=== PATIENT | male | born 1955 | race Caucasian/White ===

== ENCOUNTER → 2016-03-07 | Outpatient (CLI) | payer OTHER ==
[~2016-03-07] MED LIST: ACTIVE MIND PO; ADVIN10/60; ASPI81TA28 PO; COEN1CAP28 PO; DTRSR2 PO; FLAX12003 PO; FSMD/70; MISC1CAP60 PO; MULT-506 PO; OXYC1TAB3 PO; TRAV0.00 OP; TURM500T PO; VALA1TAB2 PO
== END | disposition home or self-care (01) ==
LOC: C.LAB 18:03
PROVIDERS: ATTEND Urology
DX: N40.1 Benign prostatic hyperplasia with lower urinary tract symptoms (principal); Z12.5 Encounter for screening for malignant neoplasm of prostate

== ENCOUNTER 2016-09-15 19:32 | Emergency (ER) | payer OTHER ==
[~2016-09-15] VITALS: Ht 182.9 cm; Wt 83.5 kg
[~2016-09-15 19:32] MED LIST changes: -ACTIVE MIND PO; -ASPI81TA28 PO; -COEN1CAP28 PO; -FLAX12003 PO; -MISC1CAP60 PO; -MULT-506 PO; -OXYC1TAB3 PO; -TRAV0.00 OP; -TURM500T PO; -VALA1TAB2 PO
[2016-09-15 19:41] VITALS: TEMP 36.7; Ht 182.9 cm; Wt 83.5 kg
[2016-09-15] MEDS ORDERED: TRAV0.00 OP (20:14)
[2016-09-15] MEDS ORDERED: OXYCODONE IR HOME PACK PO ONE (20:15)
[2016-09-15] MEDS ORDERED: MISC1CAP60 PO (20:17)
[2016-09-15] MEDS ORDERED: TURM500T PO (20:17)
[2016-09-15] MEDS ORDERED: ACTIVE MIND PO (20:17)
[2016-09-15] MEDS ORDERED: COEN1CAP28 PO (20:17)
[2016-09-15] MEDS ORDERED: ASPI81TA28 PO (20:17)
[2016-09-15] MEDS ORDERED: FLAX12003 PO (20:17)
[2016-09-15] MEDS ORDERED: MULT-506 PO (20:17)
[2016-09-15 20:19] VITALS: BP 136/84; PULSE 59; O2SAT 97
[2016-09-15] MEDS ORDERED: OXYC1TAB3 PO (20:19)
[2016-09-15] MEDS ORDERED: VALA1TAB2 PO (20:19)
--- NOTE | 2016-09-15 20:20 | EMERGENCY ROOM VISIT NOTE ---
History Report prepared by Padmini: Brooks Thacker Under the Supervision of: Lucero RosasO. First contact with patient: 19:55 Chief Complaint: RASH Stated Complaint: HEADACHE, RED SPLOTCHES ON FOREHEAD, R EYE PAIN History of Present Illness The patient is a 61 year old male who presents to the Emergency Room with complaints of a worsening rash starting about 3 days ago. The rash is located on the top of the head, right forehead, and nose. He reports right eye pain. He reports a burning pain to the area of the rash. He was evaluated at his PCP's office today and was referred to the Emergency Room for concerns about rash involvement to the right eye. He denies any history of shingles. He has a history of glaucoma and sarcoidosis. The patient also started having a cough this morning. He denies fevers, chills, or any other complaints. Source of History: patient Onset: about 3 days ago Position: head, nose Quality: burning, other (rash) Timing: worsening Associated Symptoms: + cough, No fevers, No chills Review of Systems See HPI for pertinent positives & negatives. A total of 10 systems reviewed and were otherwise negative. Past Medical & Surgical Medical Problems: (1) Glaucoma (2) Sarcoidosis Family History FH: arrhythmia FH: myocardial infarction Social History Smoking Status: Never Smoker Marital Status: single Occupation Status: employed Current/Historical Medications Scheduled Aspirin (Aspirin Ec), 81 MG PO HS Coenzyme Q10 (Ubidecarenone) (Co Q10), 100 MG PO DAILY Flaxseed (Linseed) (Flaxseed Oil), 1 CAP PO DAILY Misc Natural Products (Saw [place]), 2 CAP PO BID Multivitamin (Multivitamin), 0.5 TAB PO DAILY Travoprost (Travatan Z), 1 DROPS OP HS Turmeric (Curcuma Longa) (Turmeric), 500 MG PO DAILY Valacyclovir Hcl (Valtrex), 1,000 MG PO TID [Active Mind], 1 CAP PO DAILY Scheduled PRN Oxycodone Immediate Rel Tab (Roxicodone Ir), 1-2 TAB PO Q4H PRN for Severe Pain Allergies Coded Allergies: Iodinated Diagnostic Agents (Unverified Allergy, Unknown, UNKNOWN, 09/15/16 ) Naproxen (Unverified Allergy, Unknown, IMPAIRS COGNITIVE FUNCTION, 09/15/16 ) Simvastatin (Unverified Allergy, Unknown, SYMPTOMS OF ARTHRITIS, 09/15/16) Physical Exam Vital Signs Date Time Temp Pulse Resp B/P (MAP) Pulse Ox O2 Delivery O2 Flow Rate FiO2 09/15/16 20:19 59 16 136/84 97 Room Air 09/15/16 19:41 36.7 61 16 142/85 98 Room Air Physical Exam GENERAL: Patient is awake, alert, somewhat anxious appearing and uncomfortable. EYES: Conjunctival injection on the right eye. There is mild fluorescence uptake on the 7 o' clock position on the right cornea. EARS, NOSE, MOUTH AND THROAT: The nose is without any evidence of any deformity. Mucous membranes are moist tongue is midline NECK: The neck is nontender and supple. RESPIRATORY: Normal respiratory effort is noted there is no evidence of wheezing rhonchi or rales CARDIOVASCULAR: Regular rate and rhythm noted there no murmurs rubs or gallops normal S1 normal S2 GASTROINTESTINAL: The abdomen is soft. Bowel sounds are present in all quadrants. Abdomen is nontender MUSCULOSKELETAL/EXTREMITIES: There is no evidence of gross deformity full range of motion is noted in the hips and shoulders SKIN: There is vesicular eruption on the right forehead extending into the right scalp and tip of the nose. NEUROLOGIC: Patient is awake alert and oriented x3 strength is symmetric patellar reflexes are 2+ bilaterally Medical Decision & Procedures Medications Administered Medications (Trade) Dose Ordered Sig/Beverly Route Start Time Stop Time Status Last Admin Dose Admin Valacyclovir HCl (Valtrex Tab) 1,000 mg NOW ONCE PO 09/15/16 20:00 09/15/16 20:01 DC 09/15/16 20:05 1,000 MG Oxycodone HCl (Roxicodone Immediate Rel 5MG Home Pack) 1 homepack UD ONCE PO 09/15/16 20:15 09/15/16 20:16 DC 09/15/16 20:15 1 HOMEPACK ED Course 1954: The patient was evaluated in room A03. A complete history and physical examination were performed. 2000: Valtrex Tab 1000 mg PO 2009: I discussed the patent's case with Dr. Vaughn, rotary veneer machine operator with [facility]. He recommended starting the patient on Valtrex and having him follow up tomorrow. 2015: Oxycodone HCl 1 homepack PO. Upon reevaluation, the patient is resting comfortably. I discussed the results and treatment plan with him. He verbalized agreement of the treatment plan. The patient was discharged home. Medical Decision Prior records/ancillary studies reviewed. Triage Nursing notes reviewed. The patient's history was concerning for a rash. Differential diagnosis: Etiologies such as contact dermatitis, viral exanthem, urticaria, allergic reaction, Ryan-Homero syndrome, toxic epidermal necrolysis, erythema multiforme, cellulitis, scabies, HSV, varicella, zoster, eczema, staph scalded skin syndrome, fungal infection, as well as others were entertained. The patient is a 61-year-old male who was sent to the emergency department from the clinic for an evaluation of a rash on his forehead. The patient appears to have shingles on his forehead. The patient was started on Valtrex. This does appear to have some involvement in his right eye. I discussed his case with the rotary veneer machine operator. They've agreed to see the patient in the office the next day for reevaluation. I did review the patient's most recent laboratory studies. He was encouraged to continue all medications as prescribed. He was encouraged to follow-up with the rotary veneer machine operator as scheduled and return to the emergency department immediately if symptoms change worsen or the need arises. Medication Reconcilliation Current Medication List: was personally reviewed by me Blood Pressure Screening Patient's blood pressure: Elevated blood pressure Blood pressure disposition: Elevated BP felt to be situational Consults Time Called: 2004 Consulting Physician: Dr. Vaughn, rotary veneer machine operator with [facility] Returned Call: 2008 I discussed the patent's case with Dr. Vaughn, rotary veneer machine operator with [facility]. He recommended starting the patient on Valtrex and having him follow up tomorrow. Impression Primary Impression: Herpes zoster ophthalmicus Scribe Attestation The scribe's documentation has been prepared under my direction and personally reviewed by me in its entirety. I confirm that the note above accurately reflects all work, treatment, procedures, and medical decision making performed by me. Departure Information Dispostion Home / Self-Care Prescriptions Valacyclovir Hcl (VALTREX) 1 Gm Tab 1000 MG PO TID, #21 TAB Prov: Alli Roger, DO 09/15/16 Oxycodone Immediate Rel Tab (ROXICODONE IR) 5 Mg Tab 1-2 TAB PO Q4H Y for Severe Pain, #24 TAB Prov: Alli Roger, DO 09/15/16 Referrals Zachariah Soliman M.D. (PCP) Forms HOME CARE DOCUMENTATION FORM, IMPORTANT VISIT INFORMATION, WORK / SCHOOL INSTRUCTIONS Patient Instructions My [facility] [address] Additional Instructions Call the rotary veneer machine operator in the morning to schedule a follow-up appointment for tomorrow. Continue all medications as prescribed. Continue using Motrin and Tylenol as directed for mild pain.
== END 2016-09-15 20:32 | disposition home or self-care (01) ==
LOC: C.EDB 19:34 → C.EDA 20:32
DX: B02.30 Zoster ocular disease, unspecified (principal); H40.9 Unspecified glaucoma; D86.9 Sarcoidosis, unspecified; Z82.49 Family history of ischemic heart disease and other diseases of the circulatory system; Z79.82 Long term (current) use of aspirin

== ENCOUNTER → 2017-04-06 | Outpatient (CLI) | payer OTHER ==
[~2017-04-06] MED LIST changes: +ACTIVE MIND PO; -ADVIN10/60; +ASPI81TA28 PO; +COEN1CAP28 PO; -DTRSR2 PO; +FLAX12003 PO; -FSMD/70; +MISC1CAP60 PO; +MULT-506 PO; +TRAV0.00 OP; +TURM500T PO
== END | disposition home or self-care (01) ==
LOC: C.MAMM 09:43
PROVIDERS: ATTEND Family Medicine
DX: M85.80 Other specified disorders of bone density and structure, unspecified site (principal); D86.9 Sarcoidosis, unspecified; E55.9 Vitamin D deficiency, unspecified; Z92.241 Personal history of systemic steroid therapy; Z88.6 Allergy status to analgesic agent; Z88.8 Allergy status to other drugs, medicaments and biological substances

== ENCOUNTER → 2017-04-17 | Outpatient (CLI) | payer OTHER ==
[2017-04-17 16:09] LABS: BLOOD UREA NITROGEN 19 mg/dl (7-18); CREATININE 1.05 mg/dl (0.60-1.40)
== END | disposition home or self-care (01) ==
LOC: C.LAB1850 14:20
PROVIDERS: ATTEND Urology
DX: R39.9 Unspecified symptoms and signs involving the genitourinary system (principal); N40.1 Benign prostatic hyperplasia with lower urinary tract symptoms; R35.0 Frequency of micturition

== ENCOUNTER 2017-09-29 17:47 | Emergency (ER) | payer OTHER ==
[~2017-09-29] VITALS: Ht 182.9 cm; Wt 84.0 kg
[2017-09-29 17:57] VITALS: TEMP 36.6; Ht 182.9 cm; Wt 84.0 kg
[2017-09-29] MEDS ORDERED: SODIUM CHLORIDE 0.9% 1000ML 1,000 ML IV STA (18:05)
[2017-09-29 18:20] VITALS: O2SAT 99
[2017-09-29 18:20] LABS: BASO % 0.2 %; BASO ABS # 0.02 K/uL (0-0.2); EOS % 2.3 %; HEMATOCRIT 47.7 % (42-52); HEMOGLOBIN 16.3 g/dL (14.0-18.0); IG# 0.03 K/uL (0.00-0.02); LYMPH % 16.2 %; LYMPH ABS # 1.42 K/uL (1.2-3.4); MEAN CELL VOLUME 94.8 fL (80-100); MEAN CORPUSCULAR HEMOGLOBIN 32.4 pg (25-34); MEAN CORPUSCULAR HGB CONC 34.2 g/dl (32-36); MEAN PLATELET VOLUME 9.7 fL (7.4-10.4); MONO % 7.6 %; MONO ABS # 0.67 K/uL (0.11-0.59); NEUT % 73.4 %; NEUT ABS # 6.44 K/uL (1.4-6.5); PLATELET COUNT 283 K/uL (130-400); RED CELL DISTRIBUTION WIDTH SD 44.9 fL (36.4-46.3); WHITE BLOOD COUNT 8.78 K/uL (4.8-10.8)
[2017-09-29 18:30] LABS: ISTAT IONIZED CALCIUM 1.15 mmol/l (1.12-1.32); ISTAT POTASSIUM 3.9 mEq/L (3.3-5.0)
[2017-09-29 18:36] LABS: PTT PATIENT 26.4 SECONDS (21.0-31.0)
[2017-09-29 18:43] LABS: ALBUMIN 4.1 gm/dl (3.4-5.0); ALKALINE PHOSPHATASE 123 U/L (45-117); ALT/SGPT 36 U/L (12-78); AST/SGOT 26 U/L (15-37); BLOOD UREA NITROGEN 19 mg/dl (7-18); CALCIUM 9.4 mg/dl (8.5-10.1); CARBON DIOXIDE 30 mmol/L (21-32); CREATININE 1.03 mg/dl (0.60-1.40); GLUCOSE 102 mg/dl (70-99); POTASSIUM 3.9 mmol/L (3.5-5.1); SODIUM 140 mmol/L (136-145); TOTAL PROTEIN 8.3 gm/dl (6.4-8.2)
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
--- NOTE | 2017-09-29 19:04 | DIAGNOSTIC IMAGING REPORT ---
L TIBIA/FIBULA 2 VIEWS ROUTINE CLINICAL HISTORY: l colby pain pain COMPARISON: None. DISCUSSION: The bones and joint spaces appear intact. There is no evidence of fracture, dislocation or bony disease. There is no evidence for soft tissue swelling. IMPRESSION: Negative study. The above report was generated using voice recognition software. It may contain grammatical, syntax or spelling errors. Electronically signed by: Rolly Webb M.D. 09/29/2017 7:03 PM Dictated Date/Time: 09/29/2017 7:03 PM
[2017-09-29] MEDS ORDERED: LIDOCAINE/EPINEPHRINE 1% 20 ML VIAL ONE (19:32)
[2017-09-29 19:53] VITALS: BP 159/71; PULSE 69; O2SAT 99
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
== END 2017-09-29 19:54 | disposition home or self-care (01) ==
LOC: EDBD 17:47 → C.EDA 17:48
DX: S61.213A Laceration without foreign body of left middle finger without damage to nail, initial encounter (principal); S61.211A Laceration without foreign body of left index finger without damage to nail, initial encounter; S61.412A Laceration without foreign body of left hand, initial encounter; S80.12XA Contusion of left lower leg, initial encounter; V48.5XXA Car driver injured in noncollision transport accident in traffic accident, initial encounter; Y92.488 Other paved roadways as the place of occurrence of the external cause; H40.9 Unspecified glaucoma; D86.9 Sarcoidosis, unspecified; Z79.82 Long term (current) use of aspirin; Z79.899 Other long term (current) drug therapy; Z91.041 Radiographic dye allergy status; Z88.8 Allergy status to other drugs, medicaments and biological substances